=== PATIENT | male | born 1955 | race Caucasian/White ===

== ENCOUNTER 2023-08-08 09:21 | Day surgery (SDC) | payer OTHER, SELFPAY ==
[2023-08-03 09:59] VITALS: BMI 22.2
--- NOTE | 2023-08-07 09:28 | PM.PREOP ---
Pre-operative Note Interval Note History & Physical reviewed/Exam performed by Physician: Yes Changes to H&P: No
[2023-08-08 09:35] VITALS: BP 123/71; PULSE 47; RESP 12; TEMP 36.2; O2SAT 99; BMI 22.2
[2023-08-08] MEDS: LACTATED RINGERS 1,000 ML 42 ML IV ×2 (09:44→12:05)
[2023-08-08] MEDS: CEFAZOLIN 2 GM/100 ML PREMIX 100 ML IV (10:13)
[2023-08-08] MEDS: ACETAMINOPHEN IV 1,000 MG/100 ML VIAL 400 MG IV (10:30)
--- NOTE | 2023-08-08 10:58 | SUR.OPER ---
Supine on padded OR bed, head on pillow, arms padded and tucked at sides, legs uncrossed, safety belt at thigh, tape over blanket over lower legs .
[2023-08-08] MEDS: BUPIVACAINE 0.25% (PF) VIAL 30 ML INJ (11:52)
[2023-08-08 13:26] VITALS: BP 118/75; PULSE 66; RESP 14; TEMP 36.2; O2SAT 95
[2023-08-08 13:30] VITALS: BP 109/71; PULSE 68; RESP 17; TEMP 36.2; O2SAT 95
--- NOTE | 2023-08-08 13:31 | PM.OP.1 ---
Operative Date/Time/Diagnoses Date of procedure: 08/08/23 Time of procedure: 13:31 Pre-op diagnosis: Bilateral recurrent inguinal Post-op diagnosis: same Procedure & Clinicians Procedure: Laparoscopic repair recurrent inguinal hernia Same procedure as scheduled: Yes Indications: 67-year-old man with symptomatic reducible bilateral recurrent inguinal hernia prior anterior/open repair Surgeon: Ant Reveles Click Yes if Unassisted: Yes Anesthesia Type: General Operative Notes Findings: Right-large recurrent indirect defect Left-small recurrent direct defect. Meshoma adherent to the inferior epigastric vessels Estimated Blood Loss (mL): 50 Procedure in detail: The patient was brought to the operating room and placed supine on the table. Bilateral sequential compression devices were applied. General anesthesia was induced and they were intubated with an endotracheal tube. A reynoso cath was placed in sterile fashion. They received 2 g ancef prior to skin incision. They were prepped and draped in sterile fashion. A time out was performed to ensure the correct patient, procedure and necessary equipment within the operating room. The skin was infiltrated with 0.25% bupivicaine. A 1 cm supra umbilical midline incision was made. The fascia was sharply incised and the abdomen entered traumatically. A 10mm balloon port was placed and pneumoperitoneum was established at 15mm Hg. Inspection of the abdomen demonstrated no evidence of injury upon entry. Two 5 mm ports were then placed under direct visualization in the right and left lower quadrant lateral to the rectus muscle. A right indirect hernia and a left direct hernia were observed. There were adhesions between the sigmoid colon and the left pelvic side wall which were carefully dissected. Starting on the left side the peritoneum 4 cm superior to the deep inguinal ring between the medial umbilical ligament and the anterior superior iliac spine was incised. The medial preperitoneal dissection was carried out into the space of Retzius bluntly, the bladder was swept inferiorly, the pubis and Ulises's ligament were identified. The meshoma from his prior repair was densely adherent to the inferior epigastric vessels and was carefully dissected off. Next attention was turned towards the lateral aspect of the peritoneal flap. The preperitoneal fat with the testicular vessels was carefully dissected off the inferior peritoneal flap. The cord was carefully inspected there was no evidence of an indirect defect. The attachements to the direct hernia sac were divided and the direct defect was reduced. A large Bard 3D Max mesh was then placed into the abdomen and positioned such that the myopectineal orifice was completely covered with good overlap on all sides. Next the right side was addressed. The peritoneum 4 cm superior to the deep inguinal ring between the medial umbilical ligament and the anterior superior iliac spine was incised. The medial preperitoneal dissection was carried out into the space of Retzius bluntly, the bladder was swept inferiorly, the pubis and Ulises's ligament were identified. Next attention was turned towards the lateral aspect of the peritoneal flap. The preperitoneal fat with the testicular vessels was carefully dissected off the inferior peritoneal flap. The cord was carefully explored there was a moderate size indirect hernia fat containing which was skeletonized off the cord structures. There was no evidence of a direct hernia defect. A large Bard 3D Max mesh was then placed into the abdomen and positioned such that the myopectineal orifice was completely covered with good overlap on all sides. The peritoneal flaps were then repositioned back to its original position and both sides were sutured closed such that no bowel could herniate into the preperitoneal space. The area was examined for hemostasis. The 5mm trocars were removed under direct visualization and pneumoperitoneum was deflated through the umbilical trocar, The fascia at the umbilicus was closed with 0-Vicryl in figure of 8 fashion, skin closed with 4-0 Monocyl followed by Dermabond. The sponge and instrument count at the end of the case was correct. Both testicles were entirely within the scrotum at the end of the case. The patient emerged from anesthsia was extubated and transferred to recovery in stable condition. Complications: none Post-operative Condition: stable Disposition: same day surgery
[2023-08-08 13:35] VITALS: BP 105/70; PULSE 59; RESP 17; TEMP 36.2; O2SAT 94
[2023-08-08 13:40] VITALS: BP 107/70; PULSE 63; RESP 15; O2SAT 94
[2023-08-08 13:46] VITALS: BP 108/72; PULSE 60; RESP 14; TEMP 36.2; O2SAT 95
== END 2023-08-08 15:05 | disposition home or self-care (01) ==
PROVIDERS: Referring Provider Surgery; Visit Provider Surgery
PROC: 0YQ64ZZ Repair Left Inguinal Region, Percutaneous Endoscopic Approach (ICD-10-PCS; CPT 49651; principal; 2023-08-08 10:45)
DX: K40.21 Bilateral inguinal hernia, without obstruction or gangrene, recurrent (principal); I10 Essential (primary) hypertension; R00.1 Bradycardia, unspecified
CPT/HCPCS: 49651; 82962; J0136; J0690; J1100; J1885; J2250; J2405; J2704; J3010